=== PATIENT | female | born 1960 | race Caucasian/White ===

== ENCOUNTER → 2017-01-25 | Outpatient (CLI) | payer OTHER ==
--- NOTE | ~2017-01-25 | XA230 ---
[facility] A Service of [facility] RADIOLOGY TEXT RESULTS PATIENT: PATRIC CALHOUN LOCATION: [facility] : 56 UNIT #: [id number] AGE: [address]: AMANDA COELLO SEX: F ORDER DR: [id number] [facility]. [place], [place] [address] [id number] MR#: [id number] Acc #: [id number] NAME: PATRIC CALHOUN : 1960 SEX: F STUDY DATE/TIME: 01/25/2017 14:03 UNIT: [facility] ROOM: STUDY DESCRIPTION: XA FNA Attending Physician: Amanda Coello Aprn Referring Physician: Amanda Coello Aprn Ordering Physician: Alexandro Rodriguez M.D. Primary Care Physician: Amanda Coello Aprn MEDICAL IMAGING REPORT This report is preliminary unless electronic signature is present EXAM Ultrasound-guided thyroid FNA. INDICATION The patient is a 56-year-old lady who underwent a thyroid ultrasound on January 10, 2017 which did show a dominant solid nodule within the left lobe of the thyroid gland. She has been referred for FNA. PROCEDURE There risks, benefits, and alternatives to the procedure were explained to the patient, and signed informed consent was obtained. She was placed supine on the angiographic table and was prepped and draped in the usual sterile fashion. Time-out was performed as per protocol. Skin and subcutaneous tissues were anesthetized with buffered lidocaine, and a total of 3 separate passes were made into the lesion under direct sterile sonographic guidance. Specimens were given to a communications technologist who confirmed an adequate specimen had been obtained. Patient tolerated the procedure well and there were no immediate complications. IMPRESSION Technically successful shunt guided thyroid FNA ultrasound was used during the procedure and permanent images were saved. Dictated by... Bethany Shannon M.D. THIS IS AN ELECTRONICALLY VERIFIED REPORT Bethany Shannon M.D. at 01/26/2017 4:39 PM AFF/tmw [facility] A Service of [facility] RADIOLOGY TEXT RESULTS PATIENT: PATRIC CALHOUN [facility] #: [id number] : 56 UNIT #: [id number] AGE: [address]: AMANDA COELLO SEX: F ORDER DR: TD: 01/26/2017 11:23 JOB #: [id number] MEDICAL IMAGING REPORT COPY
== END | disposition home or self-care (01) ==
LOC: CIVR 12:51
DX: E04.1 Nontoxic single thyroid nodule (principal)
CPT/HCPCS: 76942; 88173